=== PATIENT | male | born 2000 ===

== ENCOUNTER 2021-07-03 18:35 | Emergency (ER) | payer OTHER ==
[~2021-07-03] VITALS: Ht 175.3 cm; Wt 72.0 kg
[2021-07-03 18:36] VITALS: BP 126/71
== END 2021-07-03 19:30 | disposition left against medical advice (07) ==
LOC: EMS 18:35
DX: K08.89 Other specified disorders of teeth and supporting structures (principal); Z53.21 Procedure and treatment not carried out due to patient leaving prior to being seen by health care provider